=== PATIENT | male | born 1945 | race Caucasian/White ===

== ENCOUNTER 2020-04-12 02:27 | Outpatient (CLI) | payer MEDICARE, SELFPAY ==
[2020-04-12 18:17] LABS: SARS-CoV-2 RNA PCR Negative
== END 2020-04-12 02:28 | disposition home or self-care (01) ==
PROVIDERS: PCP Family Medicine; Visit Provider Urology
DX: Z01.812 Encounter for preprocedural laboratory examination (principal); Z20.828 Contact with and (suspected) exposure to other viral communicable diseases
CPT/HCPCS: 87635; C9803; U0003

== ENCOUNTER 2020-04-12 08:00 | Outpatient (CLI) | payer MEDICARE, SELFPAY ==
[2020-04-12 08:30] LABS: Anion Gap 9 mmol/L (8-16); Blood Urea Nitrogen 23 mg/dL (9-20); Calcium 9.7 mg/dL (8.4-10.2); Carbon Dioxide 29 mmol/L (22-30); Chloride 105 mmol/L (98-107); Estimated Glomerular Filt Rate 54; Glucose 93 mg/dL (75-110); Potassium 4.7 mmol/L (3.4-5.0); Sodium 143 mmol/L (137-145)
== END 2020-04-12 08:01 | disposition home or self-care (01) ==
PROVIDERS: Anesthesiology; PCP Family Medicine; Visit Provider Urology
DX: E11.9 Type 2 diabetes mellitus without complications (principal)
CPT/HCPCS: 36415; 80048

== ENCOUNTER 2020-04-14 03:47 | Day surgery (SDC) | payer MEDICARE, SELFPAY ==
[2020-04-05 13:26] VITALS: BMI 28.9
[2020-04-14] VITALS (7 sets, daily range): BP systolic 143–168; BP diastolic 68–112; PULSE 56–75; RESP 12–20; TEMP 36.2–36.6; O2SAT 98–100
--- NOTE | ~2020-04-14 | XR_ITS ---
EXAMINATION: XR retrograde pyelogram BI EXAM DATE: 04/14/2020 09:48 INDICATION: Bilateral retrograde for abnormality. TECHNIQUE: Fluoroscopy used during XR retrograde pyelogram BI performed by Dr. Óscar Hernandez MD . The DAP for this procedure was 0.75 mGym2. Cine run(s) available for review. FINDINGS: Right ureter was cannulated, injected. Slight irregularity to the amount of distention to both ureters distally, without fixed strictures or shouldering identified. Calyces are unremarkable. Correlate with procedure note. IMPRESSION: Fluoroscopy used during XR retrograde pyelogram BI. Reviewed, dictated and finalized at location B.
--- NOTE | 2020-04-14 06:48 | WPDHPUPDATE1 ---
History and Physical Update Update Date/Time: 04/14/20 06:48 History and Physical has been reviewed, including an updated exam of the patient. There are NO changes in the patient's condition. Risks, benefits, and alternatives have been discussed and questions answered. Patient agrees to proceed with procedure.
[2020-04-14] MEDS: LACTATED RINGERS 1,000 ML 30 ML IV CONT (07:45)
[2020-04-14 07:53] LABS: Glucose Point of Care 139 (65-105)
--- NOTE | 2020-04-14 07:55 | P.PNAN_ITS ---
Anes - Initial Pre Proc Eval Procedure: Operation Date: 04/14/20 09:30 Proposed Procedures p Cystoscopy, Bilateral Retrograde Pyelograms, - Óscar Hernandez MD s Trans Urethral Resection Bladder Tumor - Óscar Hernandez MD Date/Time: 04/14/20 07:55 Surgeon: Óscar Hernandez MD Pre Op Diagnosis: bladder CA Patient Data Age: 74 Gender: M Height: 5 ft 8 in Weight: 86.36 kg Allergies Allergy/AdvReac Type Severity Reaction Status Date / Time No Known Allergies Allergy Verified 04/05/20 12:58 Home Medications Medication Instructions Recorded Confirmed Type aspirin [Aspirin Low Dose] 81 mg PO HS 04/05/20 04/05/20 History clopidogrel [Plavix] 75 mg PO HS 04/05/20 04/05/20 History famotidine 40 mg PO QAM 04/05/20 04/05/20 History lisinopril 20 mg PO BID 04/05/20 04/05/20 History metformin 500 mg PO HS 04/05/20 04/05/20 History metoprolol tartrate 50 mg PO Q12H 04/05/20 04/05/20 History jndvyxdemwok-nrilezbr-atitjs 1 tablet PO QAM 04/05/20 04/05/20 History [Multivitamin 50 Plus] pantoprazole 40 mg PO HS 04/05/20 04/05/20 History simvastatin 40 mg PO HS 04/05/20 04/05/20 History Laboratory Tests 04/14/20 07:50 POC Capillary Glucose 139 mg/dl H mg/dl (65-105) Patient hx anesthesia problems: none Family hx anesthesia problems: none [facility] Past Medical History Medical History CAD (coronary artery disease) COPD (chronic obstructive pulmonary disease) Diabetes HTN (hypertension) Smoker Surgical History Surgical History (Updated 04/14/20 @ 07:56 by Jonathon Headley MD) Hx of CABG Family History Family History (Updated 03/04/14 @ 07:13 by DOCTOR UNKNOWN) Sibling Family history of chronic obstructive pulmonary disease Social History Social History Smoking status: Current every day smoker Tobacco type: cigarettes Additional smoking assessment comments: 1/PK/DAY/50+YRS Alcohol intake: current Drinks per week: 4 Alcohol use details: STATES ONLY DRINKS DURING SUMMER MONTHS Substance use: never Living arrangements: with family Spiritual care concerns: No Anes - Eval Final PreProcedure Day of Procedure 04/14/20 07:55 Patient weight: overweight Heart: regular rate and rhythm Lungs: decreased breath sounds Airway: Mallampati scale class II and other (dentures) Neurological: alert and oriented Last oral intake: >/= 8 hours ASA classification: IV Emergent: no Anesthetic plan: proceed Anesthesia type and monitoring: general LMA and standard monitoring Informed Consent: The patient's anesthetic plan and its attendant risks and benefits were discussed with the patient/family/POA. Questions were solicited and answers provided to the satisfaction of the patient/family/POA.
[2020-04-14] MEDS: ceFAZolin 2 GM/D5W 50 ML 2 GM/50 ML BAG IVPB (09:20)
[2020-04-14] MEDS: LIDOCAINE HCL 2% GEL UROJET 10 ML PKG MUCOUS MEM (09:30)
--- NOTE | 2020-04-14 09:52 | PM.PROC ---
Procedure Note - Detailed Date of procedure: 04/14/20 Pre-op diagnosis: bladder CA Post-op diagnosis: same Procedure performed: TURBT (medium) Cysto., bladder biopsy Description of procedure: The patient was brought to the operative suite where he is prepped and draped in a routine sterile fashion while in the dorsal lithotomy position. This is done after the uneventful administration of systemic sedation. 2% Xylocaine jelly is introduced intraurethrally and allowed to stand for an appropriate period of time. A 24F resectoscope sheath was placed in the bladder and the bladder is circumferentially inspected carefully. 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 3cm in diameter. This area is resected in its entirety with an attempt made to include detrusor muscle for pathological evaluation of invasion. The base and periphery of this resected side is cauterized with a loop electrode. There are other areas in the bladder that show some subtle mild hyperemia. I biopsied a couple of these areas and cauterized the base with the loop electrode.The bladder is emptied and the resectoscope was removed. The patient is taken to the recovery room having tolerated this procedure well. Anesthesia: GLMA Surgeon: Óscar Hernandez MD Estimated blood loss (mL): 0 Drains: No Packing: No Pathology: yes Complications: No immediate complications Condition: stable Disposition: PACU
[2020-04-14] MEDS: fentaNYL CITRATE INJ (*CRX) 100 MCG/2 ML VIAL 25 MCG IV PUSH ×4 (10:09→10:25)
[2020-04-14] MEDS: oxyCODONE HCL (*CRX) 5 MG TAB IR PO (10:44)
--- NOTE | 2020-04-14 11:37 | SUR.PHASEII ---
Vitals machine not set to go off every 15 minutes so only one set of vitals were taken in outpatient.
== END 2020-04-14 11:45 | disposition home or self-care (01) ==
PROVIDERS: PCP Family Medicine; Visit Provider Urology
PROC: (CPT 52352; principal; 2020-04-14 09:30)
PROC: 0TBB8ZZ Excision of Bladder, Via Natural or Artificial Opening Endoscopic (ICD-10-PCS; CPT 52235; 2020-04-14 09:30)
DX: C67.2 Malignant neoplasm of lateral wall of bladder (principal); I10 Essential (primary) hypertension; I25.10 Atherosclerotic heart disease of native coronary artery without angina pectoris; J44.9 Chronic obstructive pulmonary disease, unspecified; E11.9 Type 2 diabetes mellitus without complications; F17.210 Nicotine dependence, cigarettes, uncomplicated; Z95.1 Presence of aortocoronary bypass graft; Z79.02 Long term (current) use of antithrombotics/antiplatelets; Z79.82 Long term (current) use of aspirin; Z79.84 Long term (current) use of oral hypoglycemic drugs
CPT/HCPCS: 52235; 36415; 74420; 80048; 87635; 88305; A9270; C1758; C1769; C9803; J0690; J1100; J2250; J2405; J2704; J3010; J7120; Q9966; U0003